=== PATIENT | male | born 1990 | race Caucasian/White ===

== ENCOUNTER 2018-04-17 06:35 | Day surgery (SDC) | payer OTHER ==
[~2018-04-17] VITALS: Ht 175.3 cm; Wt 98.9 kg
[~2018-04-17 06:35] MED LIST: ADAL40PE SQ; AMIT50TA PO; AMLO10TA4 PO; CELE100C PO; ERGO500027 PO; IBUP-1060 PO; MULT1TAB52 PO; OMEG1CAP27 PO
[2018-04-17] MEDS ORDERED: MORPHINE SULFATE 2 MG/ML VIAL. IV PRN ×2 (07:00)
[2018-04-17] MEDS ORDERED: IV RINGERS,LACTATED 1000ML 1,000 ML IV SCH ×2 (07:00)
[2018-04-17] MEDS ORDERED: LIDOCAINE 1% PF 2 ML VIAL. ID PRN ×2 (07:00)
[2018-04-17] MEDS ORDERED: PROCHLORPERAZINE 10 MG/2 ML VIAL. IV PRN ×2 (07:00)
[2018-04-17] MEDS ORDERED: fentaNYL PF VIAL 100 MCG/2 ML VIAL IV PRN ×4 (07:00)
[2018-04-17] MEDS ORDERED: HYDROmorphone 2 MG/ML VIAL IV PRN ×2 (07:00)
[2018-04-17] MEDS ORDERED: ONDANSETRON PF 4 MG/2 ML VIAL. IV PRN ×2 (07:00)
[2018-04-17] MEDS ORDERED: DEXAMETHASONE SOD PHOS 20 MG/5 ML VIAL. ONE (07:12)
[2018-04-17] MEDS ORDERED: ONDANSETRON PF 4 MG/2 ML VIAL. ONE (07:12)
[2018-04-17] MEDS ORDERED: fentaNYL PF VIAL 100 MCG/2 ML VIAL ONE ×2 (07:12→08:24)
[2018-04-17] MEDS ORDERED: LIDOCAINE 2% PF Vial for OR 5 ML VIAL. ONE (07:12)
[2018-04-17] MEDS ORDERED: PROPOFOL 20 ML IV ONE (07:12)
[2018-04-17] MEDS ORDERED: ROCURONIUM 50 MG/5 ML VIAL. ONE (07:12)
[2018-04-17] MEDS ORDERED: MIDAZOLAM HCL/PF 2 MG/2 ML VIAL. ONE ×2 (07:13→07:33)
[2018-04-17] MEDS ORDERED: LIDOCAINE 1% 20 ML VIAL. ONE (07:25)
[2018-04-17] MEDS ORDERED: EPINEPHrine VIAL 30 MG/30 ML VIAL ONE (07:25)
[2018-04-17] MEDS ORDERED: BUPIVACAINE MPF 0.5% 30 ML VIAL. ONE (07:25)
[2018-04-17] MEDS ORDERED: ROPIVacaine 0.5% PF 20 ML VIAL. ONE (07:31)
[2018-04-17] MEDS ORDERED: SUCCINYLCHOLINE 200 MG/10 ML VIAL. ONE (07:46)
--- NOTE | 2018-04-17 07:52 | DISCH ---
DISCHARGE INSTRUCTIONS Condition on Discharge Condition on Discharge: Stable Activity After Discharge Activity Instructions for Disc: Other, see below Other activity instructions: arm to remain in sling Bathing Instructions: Shower-keep dressing dry Weight Bearing Status after Di: Non weight bearing Diet after Discharge Diet after Discharge: Regular Wound Incision Care Wound/Incision Care: Ice to area for comfort, Keep wound/cast CDI, Change dressing Other wound/incision instructi: ok to change dressing after [address] after DC Call your doctor for: Concerns you may have Follow-Up Follow up with: Aye in 2 wks GIDEON LAWRENCE II, MD Apr 17, 2018 07:52
[2018-04-17] MEDS ORDERED: FAMOTIDINE 20 MG/2 ML VIAL ONE (08:23)
[2018-04-17] MEDS ORDERED: NEOSTIGMINE METHYLSULFATE 5 MG/5 ML SYRINGE. ONE (08:32)
[2018-04-17] MEDS ORDERED: KETOROLAC 30 MG/ML INJ FOR OR. INJ ONE (08:32)
[2018-04-17] MEDS ORDERED: SEVOFLURANE 61 TO 120 MINUTES. IH ONE (08:32)
[2018-04-17] MEDS ORDERED: GLYCOPYRROLATE 1 MG/5 ML VIAL. ONE (08:33)
[2018-04-17] MEDS ORDERED: ceFAZolin 2GM PREMIX 2 GM/50 ML BAG IV ONE (09:00)
--- NOTE | 2018-04-17 09:25 | PDOC4 ---
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 Anesthesia: Gen. plus regional nerve block Blood loss: 10 mL Findings: #1 full-thickness cartilage injury down to bone at anterior midportion glenoid Small loose bodies in the glenohumeral joint Labrum intact circumferentially with the exception of the Bankart tear Rotator cuff without pathology Intact cartilage at humeral head Unremarkable biceps tendon and complex. Complications: None Components inserted: Lopez and nephew small suture fix anchors 3. Reason for procedure. 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 Clinical radiographic examination including MRI were interpreted by myself and reviewed. His examination, MRI findings and history were all consistent. He had tried and failed conservative therapies including physical therapy and anti-inflammatories, these were unsuccessful. Because of his recurrent instability, we had a discussion of the risks, benefits, alternatives to the above surgery and he wished to proceed. Description of procedure: Patient was greeted in the preoperative area by myself for the correct extremity was verified and marked. He was taken to the operative suite after he had placement of a regional nerve block by the anesthesiologist. Once in the operative room, his antibiotics were started and he was transferred gently supine to the operating table and had successful induction of a general anesthetic. I then conducted my examination under anesthesia. [id number] was normal posteriorly. 2 anteriorly. Negative sulcus. We then placed him in a lateral decubitus position with the left side up , all down pressure points were padded and we used an axillary roll. He was secured to the bed. Left shoulder girdle and upper extremity were prepped and draped in our usual sterile fashion and we conducted our standard preoperative timeout. Ioban was used at the periphery. I palpated and marked surface anatomy and used a spinal needle to localize a posterior superior portal and incised skin in accordance with this. Attention use a blunt arthroscopic trocar into the glenohumeral joint followed by the camera. I then created an anterosuperior and anteroinferior portals under spinal needle localization using same technique in place 2 cannulas in these. I then conducted my diagnostic arthroscopy with the above-noted findings and remove the small loose bodies present. After this, I used the arthroscopic elevator to carefully to mobilize the labrum throughout the extent of the tear. After this, I inspected and was happy with how much tissue at mobilize. I use the arthroscopic shaver to gently debride the bone without decorticating adjacent to the labral tear. After this, I placed a suture anchor at the inferior extent of the tear and used a PDS suture to shuttle a limb through with my [email or web address] suture passing device and tied this down using arthroscopic knot-tying techniques while an central supply assistant pulled traction on the soft tissue. I then placed 2 more anchors and repeated the maneuver with my spectrum and tied these down with arthroscopic knot-tying techniques. I took care to keep the knots away from the articular surface. After this, I tested the repair, the stable to probing. I then removed all loose debris from the glenohumeral joint and the excess arthroscopic fluid. After this, I removed all arthroscopic instrumentation. Portals were closed with simple interrupted 3-0 nylon. Left upper extremity and shoulder were cleansed and dried and a sterile bulky dressing was applied followed by an abduction pillow sling. Patient was laid supine and transferred gently supine to the recovery room cart. He is taken to the PACU in a stable and extubated condition. No complications. Postoperative plan is for him to be nonweightbearing for 6 weeks. He will get started on physical therapy can of this week. We will see him back in clinic in 2 weeks, sooner should a problem arise. JULIÁN LAWRENCE II, MD Apr 17, 2018 09:25
[2018-04-17] MEDS ORDERED: OXYC1TAB15 PO (09:43)
[2018-04-17] MEDS ORDERED: oxyCODONE/APAP 5/325 1 TAB TABLET PO ONE ×2 (09:45→10:45)
[2018-04-17 12:00] VITALS: BP 146/80
[2018-04-17] MEDS ORDERED: IBUPROFEN 200 MG TABLET. PO ONE ×2 (13:05→13:15)
== END 2018-04-17 13:27 | disposition home or self-care (01) ==
LOC: SURG 06:35
PROVIDERS: ATTEND Orthopaedic Surgery Sports Medicine
DX: S43.432A Superior glenoid labrum lesion of left shoulder, initial encounter (principal); I10 Essential (primary) hypertension; K08.409 Partial loss of teeth, unspecified cause, unspecified class; Z79.899 Other long term (current) drug therapy; X58.XXXA Exposure to other specified factors, initial encounter; Y93.B2 Activity, push-ups, pull-ups, sit-ups; Y92.89 Other specified places as the place of occurrence of the external cause; Y99.8 Other external cause status
CPT/HCPCS: 29806; A7015; C1713; C1782; J0171; J0690; J1100; J1885; J2001; J2250; J2405; J2704; J2710; J2795; J3010; J3490; J0330